=== PATIENT | female | born 1995 | race Caucasian/White ===

== ENCOUNTER 2017-04-21 18:49 | Emergency (ER) | payer SELFPAY ==
--- NOTE | 2017-04-21 18:58 | EDPHY ---
H & P Stated Complaint: MONTHS OF EPIGASTRIC PAIN/HAS GOTTEN WORSE TODAY/ Time Seen by Provider: 04/21/17 18:58 - Personal History LMP (Females 10-55): Now Current Tetanus/Diphtheria Vaccine: Yes - Medical/Surgical History Hx Asthma: No Hx Chronic Respiratory Disease: No Hx Diabetes: No Hx Cardiac Disease: No Hx Renal Disease: No Hx Cirrhosis: No Hx Alcoholism: No Hx HIV/AIDS: No Hx Splenectomy or Spleen Trauma: No Other PMH: EYE SURGERY - Social History Smoking Status: Never smoked Constitutional: Initial Vital Signs Temperature (C) 36.6 C 04/21/17 18:54 Heart Rate 88 04/21/17 18:54 Respiratory Rate 20 04/21/17 18:54 Blood Pressure 111/73 04/21/17 18:54 O2 Sat (%) 98 04/21/17 18:54 O2 Delivery Mode Room Air Allergies/Adverse Reactions: No Known Allergies Allergy (Unverified 04/21/17 18:53) Home Medications: Medication Instructions Recorded Pantoprazole Sodium [Protonix] 20 mg PO DAILY #30 tablet. 04/21/17 Ranitidine HCl [Zantac 75] 150 mg PO DAILY #14 tablet 04/21/17 Medical Decision Making - Diagnostics Imaging Results: Imaging Impressions Abdomen Ultrasound 04/21/17 19:07 Impression: 1. The gallbladder is mildly contracted as the patient just ate but is otherwise unremarkable. 2. Question minimal pelvocaliectasis right kidney. 3. Otherwise normal abdominal ultrasound. Results called and discussed with Jeff Cifuentes M.D., on April 21, 2017 at 2008. ED Course/Re-evaluation: CHIEF COMPLAINT: Abdominal pain HISTORY OF PRESENT ILLNESS: 21-year-old female who was visiting from [facility]. She has had abdominal pain for several months. It is epigastric pain and it seems to wax and wane but it has intensified over the last couple days. She did have an upper endoscopy in [facility] a year or urine half ago and had some gastritis. She was treated with a specific diet but no medicine and her symptoms resolved. She denies any abdominal trauma, any fevers or chills, any vomiting, she is unclear of food makes it better or worse. She tends to eat only once a day. She does avoid spicy foods and citrus type foods. REVIEW OF SYSTEMS: A 10 point review of systems was performed and is negative with the exception of the elements mentioned in the history of present illness. PHYSICAL EXAM: HR, BP, O2 Sat, RR. Temp noted General Appearance: Alert, well hydrated, appropriate, and non-toxic appearing. Head: Atraumatic without scalp tenderness or obvious injury Eyes: Pupils equal, round, reactive to light and accommodation, EOMI, no trauma , no injection. Ears: Clear bilaterally, no perforation, normal landmarks Nose: Atraumatic, no rhinorrhea, clear. Throat: There is no erythema or exudates, no lesions, normal tonsils, mucus membranes moist. Neck: Supple, 2+ carotid upstroke, nontender, no lymphadenopathy. Respiratory: No retractions, no distress, no wheezes, and no accessory muscle use. Lungs are clear to auscultation bilaterally. Cardiovascular: Regular rate and rhythm, no murmurs, rubs, or gallops. Bilateral carotid, radial, dorsalis pedis, and posterior tibial pulses intact. Good capillary refill all extremities. Gastrointestinal: Abdomen is soft, tenderness in the epigastric and right upper quadrant area, no Cade sign, non-distended, no masses, no rebound, no guarding, no peritoneal signs. Musculoskeletal: Normal active ROM of all extremities, atraumatic. Neurological: Alert, appropriate, and interactive. The patient has normal DTRs and non-focal cranial nerves, motor, sensory, and cerebellar exam. Skin: No rashes, good turgor, no nodules on palpation. Past medical history: Gastritis Past surgical history: Noncontributory Family history: Noncontributory Social history: Single, does not use tobacco drugs or alcohol, lives in [facility] here visiting her brother DIAGNOSTICS/PROCEDURES/CRITICAL CARE TIME: Study: Ultrasound of the: abdomen Indication: upper abdominal pain Results: US scan of the abdomen was obtained. The results of the study are normal. The study was read by the radiologist, Dr. Dean. I viewed the images myself on the PACS system. DIFFERENTIAL DIAGNOSIS: The differential diagnosis for the patient's abdominal pain included but was not limited to ovarian cyst, pelvic inflammatory disease, gastritis, cholecystitis, and appendicitis. MEDICAL DECISION MAKING: This patient is in no distress. I will try gastrointestinal cocktail. She has had a history of gastritis and I believe she is exhibiting similar symptoms the potentially because she is visiting [place] having different foods. Laboratory studies and ultrasound are pending. 20:[address] Dean, radiologist. Ultrasound negative for acute processes. Laboratory studies show evidence of hematuria. Labs otherwise unremarkable. BCHG negative. Plan to discharge home in good condition. She will follow up when she returns to [facility] for H. Pylori testing and evaluatino of her hematuria. Return precautions discussed. The patient is comfortable with this plan. - Data Points Laboratory Results: Laboratory Results 04/21/17 19:00 04/21/17 19:00 04/21/17 04/21/17 04/21/17 20:20 19:00 19:00 WBC RBC Hgb Hct MCV MCH MCHC RDW Plt Count MPV Neut % (Auto) Lymph % (Auto) Coal % (Auto) Eos % (Auto) Baso % (Auto) Nucleat RBC Rel Count Absolute Neuts (auto) Absolute Lymphs (auto) Absolute Monos (auto) Absolute Eos (auto) Absolute Basos (auto) Absolute Nucleated RBC Immature Gran % Immature Gran # Sodium 138 mEq/L mEq/L (134-144) Potassium 4.0 mEq/L mEq/L (3.5-5.2) Chloride 103 mEq/L mEq/L (97-110) Carbon Dioxide 22 mEq/l mEq/l (22-31) Anion Gap 13 mEq/L mEq/L (8-16) BUN 8 mg/dL mg/dL (7-23) Creatinine 0.6 mg/dL mg/dL (0.6-1.0) Estimated GFR > 60 Glucose 72 mg/dL mg/dL (70-100) Calcium 9.9 mg/dL mg/dL (8.5-10.4) Total Bilirubin 0.5 mg/dL mg/dL (0.1-1.4) Conjugated Bilirubin 0.2 mg/dL mg/dL (0.0-0.5) Unconjugated Bilirubin 0.3 mg/dL mg/dL (0.0-1.1) AST 23 IU/L IU/L (14-46) ALT 30 IU/L IU/L (9-52) Alkaline Phosphatase 50 IU/L IU/L (38-126) Total Protein 8.5 g/dL H g/dL (6.3-8.2) Albumin 5.0 g/dL g/dL (3.5-5.0) Lipase 156 IU/L IU/L (23-300) Beta HCG, Qual NEGATIVE Urine Color YELLOW Urine Appearance HAZY Urine pH 6.0 (5.0-7.5) Ur Specific [place] 1.013 (1.002-1.030) Urine Protein NEGATIVE (NEGATIVE) Urine Ketones NEGATIVE (NEGATIVE) Urine Blood 3+ H (NEGATIVE) Urine Nitrate NEGATIVE (NEGATIVE) Urine Bilirubin NEGATIVE (NEGATIVE) Urine Urobilinogen NEGATIVE EU EU (0.2-1.0) Ur Leukocyte Esterase NEGATIVE (NEGATIVE) Urine RBC 50-182 /hpf H /hpf (0-3) Urine WBC 1-3 /hpf /hpf (0-3) Ur Epithelial Cells TRACE /lpf /lpf (NONE-1+) Urine Bacteria TRACE /hpf H /hpf (NONE SEEN) Urine Mucus TRACE /lpf /lpf (NONE-1+) Urine Glucose NEGATIVE (NEGATIVE) 04/21/17 19:00 WBC 7.15 10^3/uL 10^3/uL (3.80-9.50) RBC 4.56 10^6/uL 10^6/uL (4.18-5.33) Hgb 14.4 g/dL g/dL (12.6-16.3) Hct 42.2 % % (38.0-47.0) MCV 92.5 fL fL (81.5-99.8) MCH 31.6 pg pg (27.9-34.1) MCHC 34.1 g/dL g/dL (32.4-36.7) RDW 12.3 % % (11.5-15.2) Plt Count 235 10^3/uL 10^3/uL (150-400) MPV 10.6 fL fL (8.7-11.7) Neut % (Auto) 50.4 % % (39.3-74.2) Lymph % (Auto) 39.7 % % (15.0-45.0) Coal % (Auto) 6.7 % % (4.5-13.0) Eos % (Auto) 2.5 % % (0.6-7.6) Baso % (Auto) 0.6 % % (0.3-1.7) Nucleat RBC Rel Count 0.0 % % (0.0-0.2) Absolute Neuts (auto) 3.60 10^3/uL 10^3/uL (1.70-6.50) Absolute Lymphs (auto) 2.84 10^3/uL 10^3/uL (1.00-3.00) Absolute Monos (auto) 0.48 10^3/uL 10^3/uL (0.30-0.80) Absolute Eos (auto) 0.18 10^3/uL 10^3/uL (0.03-0.40) Absolute Basos (auto) 0.04 10^3/uL 10^3/uL (0.02-0.10) Absolute Nucleated RBC 0.00 10^3/uL 10^3/uL (0-0.01) Immature Gran % 0.1 % % (0.0-1.1) Immature Gran # 0.01 10^3/uL 10^3/uL (0.00-0.10) Sodium Potassium Chloride Carbon Dioxide Anion Gap BUN Creatinine Estimated GFR Glucose Calcium Total Bilirubin Conjugated Bilirubin Unconjugated Bilirubin AST ALT Alkaline Phosphatase Total Protein Albumin Lipase Beta HCG, Qual Urine Color Urine Appearance Urine pH Ur Specific [place] Urine Protein Urine Ketones Urine Blood Urine Nitrate Urine Bilirubin Urine Urobilinogen Ur Leukocyte Esterase Urine RBC Urine WBC Ur Epithelial Cells Urine Bacteria Urine Mucus Urine Glucose Medications Given: Discontinued Medications Al Hydroxide/Mg Hydroxide (Maalox Susp) 30 ml PO ONCE ONE Stop: 04/21/17 19:07 Last Admin: 04/21/17 19:17 Dose: 30 ml Hyoscyamine Sulfate (Levsin, Hyomax-Sl) 0.25 mg PO ONCE ONE Stop: 04/21/17 19:07 Last Admin: 04/21/17 19:17 Dose: 0.25 mg Sodium Chloride (Ns) 1,000 mls @ 0 mls/hr IV EDNOW ONE; Wide Open PRN Reason: Protocol Stop: 04/21/17 19:07 Last Admin: 04/21/17 19:17 Dose: 1,000 mls Lidocaine (Lidocaine 2% Viscous) 15 ml PO ONCE ONE Stop: 04/21/17 19:07 Last Admin: 04/21/17 19:17 Dose: 15 ml Ondansetron HCl (Zofran) 4 mg IVP EDNOW ONE Stop: 04/21/17 19:07 Last Admin: 04/21/17 19:17 Dose: 4 mg Departure - Departure Disposition: Home, Routine, Self-Care Clinical Impression: Hematuria Qualifiers: Hematuria type: other microscopic Qualified Code(s): R31.29 - Other microscopic hematuria Gastritis Qualifiers: Gastritis type: other gastritis Chronicity: acute Gastritis bleeding: without bleeding Qualified Code(s): K29.00 - Acute gastritis without bleeding Condition: Good Instructions: Gastritis (ED), Hematuria (ED) Additional Instructions: 1. Follow up for your H. Pylori test when you return home as discussed. Follow up regarding the microscopic blood we detected in your urine as well. 2. Return to the emergency department for uncontrollable vomiting or diarrhea, increased abdominal pain, fever, or other worsening of condition. 3. Take your Zantac and Protonix as prescribed for relief of symptoms. Referrals: Peri Pineda MD [place] [place] - As per Instructions Prescriptions: Pantoprazole Sodium [Protonix] 20 mg PO DAILY #30 tablet. Ranitidine HCl [Zantac 75] 150 mg PO DAILY #14 tablet Report Scribed for: Jeff Cifuentes Report Scribed by: Kimi Guardado Date of Report: 04/21/17 Time of Report: 20:56
[2017-04-21] MEDS ORDERED: HYOSCYAMINE SULFATE 0.125 MG TAB PO ONE (19:06)
[2017-04-21] MEDS ORDERED: LIDOCAINE 2% VISCOUS 15 ML UDCUP PO ONE (19:06)
[2017-04-21] MEDS ORDERED: ONDANSETRON 4 MG/2 ML VIAL IVP ONE (19:06)
[2017-04-21] MEDS ORDERED: MAG HYDROX/AL HYDROX/SIMETH 30 ML UDCUP PO ONE (19:06)
[2017-04-21] MEDS ORDERED: NS 1,000 ML IV ONE (19:06)
[2017-04-21 19:15] LABS: % IMMATURE GRANULYOCYTES 0.1 % (0.0-1.1); ABSOLUTE IMMATURE GRANULOCYTES 0.01 10^3/uL (0.00-0.10); ADD DIFF? NO; ADD MORPH? NO; ADD SCAN? NO; ATYPICAL LYMPHOCYTE FLAG 0 (0-99); FRAGMENT RBC FLAG 0 (0-99); HEMATOCRIT 42.2 % (38.0-47.0); HEMOGLOBIN 14.4 g/dL (12.6-16.3); LEFT SHIFT FLG 0 (0-99); LIPEMIA HEMOLYSIS FLAG 90 (0-99); MEAN CELL HEMOGLOBIN 31.6 pg (27.9-34.1); MEAN CELL HEMOGLOBIN CONCENTR. 34.1 g/dL (32.4-36.7); MEAN CELL VOLUME 92.5 fL (81.5-99.8); MEAN PLATELET VOLUME 10.6 fL (8.7-11.7); PLATELET CLUMPS FLAG 0 (0-99); PLATELET COUNT 235 10^3/uL (150-400); RED BLOOD CELL COUNT 4.56 10^6/uL (4.18-5.33); RED CELL DISTRIBUTION WIDTH 12.3 % (11.5-15.2)
[2017-04-21 19:34] LABS: ALANINE AMINOTRANSFERASE 30 IU/L (9-52); ALKALINE PHOSPHATASE 50 IU/L (38-126); ANION GAP 13 mEq/L (8-16); ASPARTATE AMINOTRANSFERASE 23 IU/L (14-46); BILIRUBIN,TOTAL 0.5 mg/dL (0.1-1.4); BILIRUBIN-CONJUGATED 0.2 mg/dL (0.0-0.5); BILIRUBIN-UNCONJUGATED 0.3 mg/dL (0.0-1.1); CALCIUM 9.9 mg/dL (8.5-10.4); CARBON DIOXIDE 22 mEq/l (22-31); CHLORIDE 103 mEq/L (97-110); CREATININE 0.6 mg/dL (0.6-1.0); GLOMERULAR FILTRATION RATE > 60; GLUCOSE 72 mg/dL (70-100); SODIUM 138 mEq/L (134-144); TOTAL PROTEIN 8.5 g/dL (6.3-8.2)
[2017-04-21 20:25] VITALS: O2SAT 99
[2017-04-21 20:35] LABS: COLOR YELLOW; LEUKOCYTE ESTERASE,URINE NEGATIVE (NEGATIVE); NITRITE,URINE NEGATIVE (NEGATIVE)
[2017-04-21 20:37] LABS: BACTERIA TRACE /hpf (NONE SEEN); MUCUS TRACE /lpf (NONE-1+); RBC,URINE 50-182 /hpf (0-3)
[2017-04-21 21:01] VITALS: BP 105/68; PULSE 91; RESP 97; TEMP 98.2
== END 2017-04-21 20:59 | disposition home or self-care (01) ==
DX: K29.00 Acute gastritis without bleeding (principal); R31.29 Other microscopic hematuria; E86.9 Volume depletion, unspecified
CPT/HCPCS: 96374; J2405